=== PATIENT | male | born 1970 | race Caucasian/White ===

== ENCOUNTER 2016-07-05 12:47 | Emergency (ER) | payer BC ==
[~2016-07-05] VITALS: Ht 175.3 cm; Wt 106.2 kg
[~2016-07-05 12:47] MED LIST: ADVIN25050 INH; ALBINS INH; ALBUAER2 INH; ALL180 PO; METH4PAK4 PO
[2016-07-05 12:53] VITALS: TEMP 36.6; Ht 175.3 cm; Wt 106.2 kg
[2016-07-05 13:00] VITALS: O2SAT 95
[2016-07-05 13:13] LABS: BASO % 0.4 %; BASO ABS # 0.03 K/uL (0-0.2); COMPLETE YES; EOS % 2.3 %; HEMATOCRIT 42.7 % (42-52); IG% 0.1 %; LYMPH % 26.5 %; LYMPH ABS # 2.19 K/uL (1.2-3.4); MEAN CELL VOLUME 84.7 fL (80-100); MEAN CORPUSCULAR HGB CONC 36.5 g/dl (32-36); MEAN PLATELET VOLUME 9.5 fL (7.4-10.4); MONO % 6.7 %; PLATELET COUNT 179 K/uL (130-400); RED BLOOD COUNT 5.04 M/uL (4.7-6.1); WHITE BLOOD COUNT 8.27 K/uL (4.8-10.8)
[2016-07-05] MEDS ORDERED: VNTHFA/IN INH (13:19)
[2016-07-05] MEDS ORDERED: MONT1TAB3 PO (13:19)
[2016-07-05] MEDS ORDERED: ADVIN25/60 INH (13:19)
[2016-07-05 13:31] LABS: ALT/SGPT 53 U/L (12-78); AST/SGOT 26 U/L (15-37); BLOOD UREA NITROGEN 16 mg/dl (7-18); BUN/CREATININE RATIO 15.9 (10-20); CALCIUM 8.8 mg/dl (8.5-10.1); CARBON DIOXIDE 29 mmol/L (21-32); CHLORIDE 107 mmol/L (98-107); GLUCOSE 104 mg/dl (70-99); POTASSIUM 3.8 mmol/L (3.5-5.1); PROTHROMBIN TIME (PATIENT) 10.5 SECONDS (9.0-12.0); SODIUM 143 mmol/L (136-145)
[2016-07-05 13:42] LABS: ALKALINE PHOSPHATASE 73 U/L (45-117); CKMB/CK RATIO 0.7 (0-3.0)
--- NOTE | 2016-07-05 13:49 | DIAGNOSTIC IMAGING REPORT ---
SINGLE VIEW CHEST CLINICAL HISTORY: Fever. Sepsis. Atypical chest pain. FINDINGS: An AP, portable, upright chest radiograph is compared to study dated 02/02/2009. The examination is degraded by portable technique and apical lordotic positioning. The heart is top normal for projection. The external contour is within normal limits. The lungs and pleural spaces are clear. No pneumothorax is seen. The bony thorax is grossly intact. IMPRESSION: No active disease in the chest. Electronically signed by: Manny Bartlett M.D. 07/05/2016 1:47 PM Dictated Date/Time: 07/05/2016 1:47 PM
--- NOTE | 2016-07-05 14:17 | EMERGENCY ROOM VISIT NOTE ---
History Report prepared by Elodiaibnila: Nicolle Farrell Under the Supervision of: Dr. Leo Patel D.O. First contact with patient: 12:56 Chief Complaint: CHEST PAIN Stated Complaint: CHEST PAIN History of Present Illness The patient is a 45 year old male who presents to the Emergency Room with complaints of an episode of chest pain this morning. The patient was at the grocery store when he developed left sided chest pain suddenly. He describes the discomfort as a heaviness. The discomfort radiated through his back. He also developed some pain behind his left eye. The patient started to feel his heart racing and lightheaded, so he walked outside to get some fresh air, which did make him feel better. The episode lasted about 10-15 minutes. Currently, he feels a little tired, but his other symptoms have resolved. He reports that he drank coffee this morning and did not eat too much for breakfast. The patient had a stress test 5 years ago which was normal. He does not have a history of smoking or drinking. He denies diaphoresis, nausea, leg pain or recent long trips. There is a family history of heart disease but not at a young age. Source of History: patient Onset: this morning Position: chest (left) Quality: other (heavy) Timing: resolved Associated Symptoms: No diaphoresis, No nausea Note: Other symptoms: lightheadedness, heart racing, tired Review of Systems See HPI for pertinent positives & negatives. A total of 10 systems reviewed and were otherwise negative. Past Medical & Surgical Medical Problems: (1) Asthma Family History Diabetes mellitus Heart disease Hypertension Kidney disease Social History Smoking Status: Never Smoker Smokeless Tobacco Use: No Alcohol Use: none Marital Status: Housing Status: lives with family Occupation Status: employed Current/Historical Medications Scheduled Fluticasone Prop/Salmeterol (Advair Diskus 250/50 60 Dose), 1 PUFF INH BID Montelukast Sodium (Singulair), 10 MG PO DAILY Scheduled PRN Albuterol Hfa (Ventolin Hfa), 2-4 PUFFS INH Q6H PRN for SOB/Wheezing Allergies Coded Allergies: No Known Allergies (Verified Allergy, Unknown, 07/28/02) Physical Exam Vital Signs Date Time Temp Pulse Resp B/P Pulse Ox O2 Delivery O2 Flow Rate FiO2 07/05/16 13:04 93 07/05/16 13:00 95 Room Air 07/05/16 13:00 95 Room Air 07/05/16 12:53 36.6 95 18 159/89 94 Room Air Physical Exam CONSTITUTIONAL/VITAL SIGNS: Reviewed / noted above. GENERAL: Non-toxic in appearance. INTEGUMENTARY: Warm, dry, and [place]. HEAD: Normocephalic. EYES: without scleral icterus or trauma. ENT/OROPHARYNX: clear and moist. LYMPHADENOPATHY/NECK: Is supple without lymphadenopathy or meningismus. RESPIRATORY: Lungs clear and equal. CARDIOVASCULAR: Regular rate and rhythm. GI/ABDOMEN: Soft and nontender. No organomegaly or pulsatile mass. No rebound or guarding. Normal bowel sounds. EXTREMITIES: Warm and well perfused. BACK: No CVA tenderness. NEUROLOGICAL: Intact without focal deficits. PSYCHIATRIC: normal affect. MUSCULOSKELETAL: Normally developed with good muscle tone. Medical Decision & Procedures ER Provider Diagnostic Interpretation: X ray results and stated below per my interpretation and radiology interpretation. SINGLE VIEW CHEST CLINICAL HISTORY: Fever. Sepsis. Atypical chest pain. FINDINGS: An AP, portable, upright chest radiograph is compared to study dated 02/02/2009. The examination is degraded by portable technique and apical lordotic positioning. The heart is top normal for projection. The external contour is within normal limits. The lungs and pleural spaces are clear. No pneumothorax is seen. The bony thorax is grossly intact. IMPRESSION: No active disease in the chest. Electronically signed by: Manny Bartlett M.D. 07/05/2016 1:47 PM Dictated Date/Time: 07/05/2016 1:47 PM Laboratory Results 07/05/16 13:02 Red Blood Count 5.04, Mean Corpuscular Volume 84.7, Mean Corpuscular Hemoglobin 31.0, Mean Corpuscular Hemoglobin Concent 36.5, Mean Platelet Volume 9.5, Neutrophils (%) (Auto) 64.0, Lymphocytes (%) (Auto) 26.5, Monocytes (%) (Auto) 6.7, Eosinophils (%) (Auto) 2.3, Basophils (%) (Auto) 0.4, Neutrophils # (Auto) 5.30, Lymphocytes # (Auto) 2.19, Monocytes # (Auto) 0.55, Eosinophils # (Auto) 0.19, Basophils # (Auto) 0.03 07/05/16 13:02 Test 07/05/16 13:02 White Blood Count 8.27 K/uL (4.8-10.8) Red Blood Count 5.04 M/uL (4.7-6.1) Hemoglobin 15.6 g/dL (14.0-18.0) Hematocrit 42.7 % (42-52) Mean Corpuscular Volume 84.7 fL (80-100) Mean Corpuscular Hemoglobin 31.0 pg (25-34) Mean Corpuscular Hemoglobin Concent 36.5 g/dl (32-36) Platelet Count 179 K/uL (130-400) Mean Platelet Volume 9.5 fL (7.4-10.4) Neutrophils (%) (Auto) 64.0 % Lymphocytes (%) (Auto) 26.5 % Monocytes (%) (Auto) 6.7 % Eosinophils (%) (Auto) 2.3 % Basophils (%) (Auto) 0.4 % Neutrophils # (Auto) 5.30 K/uL (1.4-6.5) Lymphocytes # (Auto) 2.19 K/uL (1.2-3.4) Monocytes # (Auto) 0.55 K/uL (0.11-0.59) Eosinophils # (Auto) 0.19 K/uL (0-0.5) Basophils # (Auto) 0.03 K/uL (0-0.2) RDW Standard Deviation 36.9 fL (36.4-46.3) RDW Coefficient of Variation 12.1 % (11.5-14.5) Immature Granulocyte % (Auto) 0.1 % Immature Granulocyte # (Auto) 0.01 K/uL (0.00-0.02) Prothrombin Time 10.5 SECONDS (9.0-12.0) Prothromb Time International Ratio 1.0 (0.9-1.1) Activated Partial Thromboplast Time 25.3 SECONDS (21.0-31.0) Partial Thromboplastin Ratio 1.0 D-Dimer 190 ug/L FEU (0-500) Anion Gap 7.0 mmol/L (3-11) Est Creatinine Clear Calc Drug Dose 112.0 ml/min Estimated GFR () 104.9 Estimated GFR (Non- 90.5 BUN/Creatinine Ratio 15.9 (10-20) Calcium Level 8.8 mg/dl (8.5-10.1) Total Bilirubin 0.6 mg/dl (0.2-1) Direct Bilirubin 0.1 mg/dl (0-0.2) Aspartate Amino Transf (AST/SGOT) 26 U/L (15-37) Alanine Aminotransferase (ALT/SGPT) 53 U/L (12-78) Alkaline Phosphatase 73 U/L (45-117) Total Creatine Kinase 179 U/L (39-308) Creatine Kinase MB 1.2 ng/ml (0.5-3.6) Creatine Kinase MB Ratio 0.7 (0-3.0) Troponin I < 0.015 ng/ml (0-0.045) Total Protein 7.5 gm/dl (6.4-8.2) Albumin 4.2 gm/dl (3.4-5.0) Thyroid Stimulating Hormone (TSH) 2.140 uIu/ml (0.300-4.500) Laboratory results as stated above per my review. ECG Indication: chest pain Rate (beats per minute): 94 Rhythm: normal sinus Findings: no ectopy, other (no acute injury) ED Course 1258: The patient was evaluated in room A3. A complete history and physical examination was performed. 1417: On reevaluation, the patient is resting comfortably. I discussed the results and findings with the patient. He verbalized agreement of the treatment plan. The patient was discharged home. Medical Decision the differential was considered includes acute myocardial infarction, acute coronary syndrome, myocarditis, pericarditis, pericardial effusions /tamponad, esophageal perforation, thoracic aortic dissection, pulmonary embolism, pneumonia, pneumothorax, pancreatitis, shingles, acute cholecystitis, perforated abdominal viscus. This is a 45-year-old male who presents to the ED with a chief complaint of palpitations and chest discomfort. The patient states that he was shopping in a store when he began feeling like his heart was racing and had a heaviness. He states that he felt lightheaded. He states that he went outside to get fresh air. His symptoms lasted for about 10 minutes or so and then resolved. The patient feels that he made a self anxious because of his father's history of cardiac disease later in life. He currently denies any symptoms with exception of some mild weakness. His vital signs are stable here. Physical exam is normal. Twelve-lead EKG reveals a normal sinus rhythm without ectopy or acute injury. Chest x-ray did not show any acute disease. CBC is normal. Complete metabolic panel is normal. D-dimer and troponin are negative. TSH was normal. The patient was told results the test. He did not have any dysrhythmia during his stay. He was felt to be stable for discharge and outpatient follow-up. Impression Primary Impression: Heart palpitations Scribe Attestation The scribe's documentation has been prepared under my direction and personally reviewed by me in its entirety. I confirm that the note above accurately reflects all work, treatment, procedures, and medical decision making performed by me. Departure Information Dispostion Home / Self-Care Referrals Danii Pereira D.O. (PCP) Patient Instructions My [facility] Additional Instructions Follow-up with your doctor for further care and evaluation in 1-5 days. Return to the emergency department for worsening or new symptoms or any concerns. You have been examined and treated today on an emergency basis only. This is not a substitute for, or an effort to provide, complete comprehensive medical care. It is impossible to recognize and treat all injuries or illnesses in a single emergency department visit. It is therefore important that you follow up closely with your doctor. Call as soon as possible for an appointment.
[2016-07-05 14:35] VITALS: BP 110/84; PULSE 84; O2SAT 96
== END 2016-07-05 14:36 | disposition home or self-care (01) ==
LOC: C.EDB 12:52 → C.EDA 14:36
DX: R00.2 Palpitations (principal); J45.909 Unspecified asthma, uncomplicated; Z83.3 Family history of diabetes mellitus; Z84.1 Family history of disorders of kidney and ureter; Z82.49 Family history of ischemic heart disease and other diseases of the circulatory system